=== PATIENT | male | born 1965 | race Caucasian/White ===

== ENCOUNTER → 2021-12-04 | Outpatient (CLI) | payer OTHER ==
[2021-12-05 01:36] LABS: HCT 45.1 % (39.6-50.0); HGB 14.8 g/dL (13.0-17.0); MCH 31.6 pg (27.0-32.0); MCHC 32.8 g/dL (32.0-37.0); MCV 96.4 fL (80.0-97.0); Mean Platelet Volume 11.7 fL (9.5-12.2); NRBC Per 100 WBC 0 /100 WBCS (0.0-0.0); Platelet Count 193 X 10*3/uL (140-440); RBC 4.68 X 10*6/uL (4.40-5.60); RDW 12.8 % (11.5-14.5); WBC 7.54 X 10*3/uL (4.50-10.00)
[2021-12-05 02:08] LABS: ALT 30 U/L (10-49); AST 27 U/L (14-35); African American GFR (CKD) 77.1 (60.0-200.0); Albumin 4.7 g/dL (3.8-4.9); Albumin/Globulin Ratio 2.42 (1.60-3.17); Alkaline Phosphatase 58 U/L (41-126); BUN/Creat Ratio 13.97 Ratio (12.00-20.00); Blood Urea Nitrogen 16.9 mg/dL (9.0-27.0); Calcium 9.4 mg/dL (8.7-10.3); Carbon Dioxide 27.4 mmol/L (20.0-27.5); Chloride 101 mmol/L (96-109); Chol/HDL Ratio 2.97 Ratio; Globulin 1.9 g/dL (1.6-3.3); Glucose 91 mg/dL (70-110); Non-African American GFR(CKD) 66.5 (60.0-200.0); Potassium 4.4 mmol/L (3.5-5.5); Sodium 138 mmol/L (135-145); Total Protein 6.6 g/dL (6.2-8.2); VLDL Calculation 15.74 mg/dL (5.00-40.00)
== END | disposition home or self-care (01) ==
LOC: LABWHC1 15:55
PROVIDERS: ATTEND Family Medicine
DX: Z00.01 Encounter for general adult medical examination with abnormal findings (principal)
CPT/HCPCS: 36415; 80053; 80061; 84153; 85027

== ENCOUNTER → 2022-11-07 | Outpatient (CLI) | payer OTHER ==
--- NOTE | 2022-11-08 08:08 | CT ---
EXAMINATION TYPE: CT angio thor/abd pel aorta DATE OF EXAM: 11/07/2022 COMPARISON: CT chest 05/20/2022 HISTORY: Thoracic aortic aneurysm CT DLP: 629.5 mGycm Automated exposure control for dose reduction was used. Contrast: None Technique: Axial images 5 mm thick section. Pre and postcontrast imaging is performed. Three-D recons tructed images through the thoracic aorta is performed. FINDINGS: Lung windows are clear. No suspicious masses or infiltrates are evident. Portion of the thyroid visualized is normal. There is a three-vessel arch. The aorta at the aortic ro ot is 3.6 cm. Ascending thoracic aorta at the pain pulmonary artery is 4.6 cm. The main pulmonary art krishan at the bifurcation is 2.8 cm. Transverse dimension of the anterior aortic arch is 3.3 cm. The major cending thoracic aorta tapers through its visualized course and measures 2.0 cm diaphragm. Celiac axi s and superior mesenteric artery are patent. Renal artery origins appear normal. Abdominal aorta tape rs normally throughout its visualized course. Bifurcation appears normal. Common, internal, and exter nal iliac vessels are patent. Common femoral arteries are patent. CT CHEST: Lung windows are clear. No enlarged adenopathy is evident. There appears to be aortic valve calcification. CT ABDOMEN: Liver and spleen have a normal density without discrete masses or cysts. Pancreas is unre markable. Gallbladder is normal. Adrenal glands are normal. Kidneys are normal without masses cysts o r hydronephrosis. No renal stones are identified. Inferior vena cava is normal. Loops of bowel within the abdomen without oral contrast are unremarkable CT PELVIS: Appendix is not identified. No dilated tubular structure or inflammatory changes are evide nt. A few diverticuli are within the sigmoid colon. No adjacent inflammatory changes are evident. Pel zain loops of bowel are otherwise unremarkable Prostate is prominent. Bladder is normal. IMPRESSION: 1. ANEURYSMAL DILATATION OF THE ASCENDING THORACIC AORTA WITH AN AP DIAMETER OF 4.6 CM. THIS IS STABL E FROM COMPARISON.
== END | disposition home or self-care (01) ==
LOC: RADCTMAIN 08:41
PROVIDERS: ATTEND Internal Medicine Cardiovascular Disease
DX: I71.20 Thoracic aortic aneurysm, without rupture, unspecified (principal); I71.21 Aneurysm of the ascending aorta, without rupture
CPT/HCPCS: 71275; 74174; Q9967

== ENCOUNTER → 2023-01-28 | Outpatient (CLI) | payer OTHER ==
[2023-01-28 15:58] LABS: HCT 47.5 % (39.6-50.0); HGB 15.6 g/dL (13.0-17.0); MCH 30.8 pg (27.0-32.0); MCHC 32.8 g/dL (32.0-37.0); MCV 93.7 FL (80.0-97.0); Mean Platelet Volume 11.2 FL (9.5-12.2); NRBC Per 100 WBC 0 X 10*3/uL (0.00-0.01); Platelet Count 179 X 10*3/uL (140-440); RBC 5.07 X 10*6/uL (4.40-5.60); RDW 12.6 % (11.5-14.5); WBC 6.13 X 10*3/uL (4.50-10.00)
[2023-01-28 16:13] LABS: ALT 28 U/L (10-49); AST 24 U/L (14-35); Albumin 4.9 g/dL (3.8-4.9); Albumin/Globulin Ratio 2.45 Ratio (1.60-3.17); Alkaline Phosphatase 59 U/L (41-126); BUN/Creat Ratio 17.09 Ratio (12.00-20.00); Blood Urea Nitrogen 18.8 mg/dL (9.0-27.0); Calcium 9.6 mg/dL (8.7-10.3); Carbon Dioxide 24.8 mmol/L (21.6-31.8); Chloride 107 mmol/L (96-109); Chol/HDL Ratio 2.93 Ratio; Glucose 93 mg/dL (70-110); LDL Cholesterol,Calculated 95.8 mg/dL (0.0-131.0); Potassium 4.8 mmol/L (3.5-5.5); Prostate Specific Antigen 1.15 ng/mL (0.000-3.500); Sodium 142 mmol/L (135-145); Total Bilirubin 0.4 mg/dL (0.3-1.2); Total Protein 6.9 g/dL (6.2-8.2); VLDL Calculation 14.32 mg/dL (5.00-40.00)
== END | disposition home or self-care (01) ==
LOC: LABWHC1 10:30
DX: Z00.01 Encounter for general adult medical examination with abnormal findings (principal)
CPT/HCPCS: 36415; 80053; 80061; 84153; 85027

== ENCOUNTER → 2023-04-03 | Outpatient (CLI) | payer OTHER ==
[2023-04-03 15:28] LABS: BUN/Creat Ratio 15.08 Ratio (12.00-20.00); Blood Urea Nitrogen 19.6 mg/dL (9.0-27.0); Calcium 9.4 mg/dL (8.7-10.3); Carbon Dioxide 25.2 mmol/L (21.6-31.8); Chloride 101 mmol/L (96-109); Glucose 102 mg/dL (70-110); Potassium 4.9 mmol/L (3.5-5.5); Sodium 138 mmol/L (135-145)
[2023-04-03 17:52] LABS: INR 2.01 sec (0.93-1.11); Prothrombin Time 20.7 sec (9.9-11.9)
== END | disposition home or self-care (01) ==
LOC: LABWHC1 11:00
DX: Z98.890 Other specified postprocedural states (principal); Z86.79 Personal history of other diseases of the circulatory system
CPT/HCPCS: 36415; 80048; 85610

== ENCOUNTER → 2023-12-30 | Outpatient (CLI) | payer OTHER ==
[2023-12-30 15:29] LABS: HCT 45.8 % (39.6-50.0); HGB 15.2 g/dL (13.0-17.0); MCH 31.7 pg (27.0-32.0); MCHC 33.2 g/dL (32.0-37.0); MCV 95.6 FL (80.0-97.0); NRBC Per 100 WBC 0 X 10*3/uL (0.00-0.01); Platelet Count 185 X 10*3/uL (140-440); RBC 4.79 X 10*6/uL (4.40-5.60); WBC 7.21 X 10*3/uL (4.50-10.00)
[2023-12-30 15:39] LABS: ALT 29 U/L (10-49); AST 23 U/L (14-35); Albumin 4.3 g/dL (3.8-4.9); Albumin/Globulin Ratio 2.39 Ratio (1.60-3.17); Alkaline Phosphatase 60 U/L (41-126); BUN/Creat Ratio 13.55 Ratio (12.00-20.00); Blood Urea Nitrogen 14.9 mg/dL (9.0-27.0); Calcium 9.3 mg/dL (8.7-10.3); Carbon Dioxide 26.9 mmol/L (21.6-31.8); Chloride 109 mmol/L (96-109); Chol/HDL Ratio 2.29 Ratio; Globulin 1.8 g/dL (1.6-3.3); Glucose 103 mg/dL (70-110); LDL Cholesterol,Calculated 54.6 mg/dL (0.0-131.0); Potassium 4.9 mmol/L (3.5-5.5); Prostate Specific Antigen 1.23 ng/mL (0.000-3.500); Sodium 145 mmol/L (135-145); Total Bilirubin 0.5 mg/dL (0.3-1.2); Total Protein 6.1 g/dL (6.2-8.2); VLDL Calculation 10.66 mg/dL (5.00-40.00)
== END | disposition home or self-care (01) ==
LOC: LABWHC1 09:38
PROVIDERS: ATTEND Family Medicine
DX: Z00.01 Encounter for general adult medical examination with abnormal findings (principal)
CPT/HCPCS: 36415; 80053; 80061; 84153; 85027